=== PATIENT | male | born 1965 | race Two or more races ===

== ENCOUNTER 2019-12-24 05:15 | Day surgery (SDC) | payer OTHER ==
[~2019-12-24 05:15] MED LIST: CLONAZEPAM2 M1 PO; DILTIAZEM PO; ENALAPRIL MALEA20 MG PO; HYDROCHLO PO; TIROSINT50 MCG PO; TRAZODONE HCL100 MG PO; TRULICITY0.75 MG/0.; TRULICITY0.75 MG/0. PO; XIGDUO XR 5 MG1 EAC1 PO; ZANAFLEX4 M1 PO; ZOCOR20 MG PO
[2019-12-24] MEDS ORDERED: PERCOCET 5-3251 EACH PO (08:10)
[2019-12-24] MEDS ORDERED: RECTICARE30 GM TOP (08:10)
== END 2019-12-24 13:40 | disposition home or self-care (01) ==
LOC: CIR.AMB 05:15
DX: K60.1 Chronic anal fissure (principal)